=== PATIENT | female | born 1985 | race Asian ===

== ENCOUNTER 2019-11-22 08:20 | Emergency (ER) | payer MEDICAID ==
[~2019-11-22] VITALS: Ht 167.6 cm; Wt 50.0 kg
[2019-11-22 09:42] VITALS: BP 130/85
== END 2019-11-22 09:47 | disposition home or self-care (01) ==
LOC: ER 08:20
DX: T40.5X1A Poisoning by cocaine, accidental (unintentional), initial encounter (principal); T42.4X1A Poisoning by benzodiazepines, accidental (unintentional), initial encounter; R00.2 Palpitations; F14.188 Cocaine abuse with other cocaine-induced disorder; F13.188 Sedative, hypnotic or anxiolytic abuse with other sedative, hypnotic or anxiolytic-induced disorder; R03.0 Elevated blood-pressure reading, without diagnosis of hypertension; Y92.89 Other specified places as the place of occurrence of the external cause
CPT/HCPCS: 71045; 81025; 93005; 99283